=== PATIENT | male | born 1955 | race Caucasian/White ===

== ENCOUNTER → 2024-08-07 09:53 | Outpatient (BNVA) | payer MEDICARE, SELFPAY | PROVIDERS: Family Provider Nurse Practitioner; PCP Nurse Practitioner; Visit Provider Nurse Practitioner | DX: R06.89 Other abnormalities of breathing (principal); J92.9 Pleural plaque without asbestos | CPT/HCPCS: 71046 ==

== ENCOUNTER → 2025-01-18 09:29 | Outpatient (BNVA) | payer MEDICARE, SELFPAY | PROVIDERS: Family Provider Nurse Practitioner; PCP Nurse Practitioner; Visit Provider Nurse Practitioner Family | DX: N39.0 Urinary tract infection, site not specified (principal) | CPT/HCPCS: 81000; 87077; 87086; 87184 ==